=== PATIENT | male | born 1965 | race Caucasian/White ===

== ENCOUNTER → 2016-05-09 | Outpatient (CLI) | payer BC ==
[2016-05-09 09:12] LABS: Basophils # (A) 0.1 k/uL (0-0.2); Basophils % (A) 1 %; CHCM 33.4; Eosinophils # (A) 0.1 k/uL (0-0.7); Eosinophils % (A) 2 %; HCT 45.9 % (39.0-53.0); HDW 2.42; HGB 15.3 gm/dL (13.0-17.5); Luc # (Auto) 0.28; Luc % (Auto) 4; Lymphocytes # (A) 1.8 k/uL (1.0-4.8); Lymphocytes % (A) 26 %; MCH 30.2 pg (25.0-35.0); MCHC 33.4 g/dL (31.0-37.0); MCV 90.4 fL (80.0-100.0); Mean Platelet Volume 7.7; Monocytes # (A) 0.4 k/uL (0-1.0); Monocytes % (A) 6 %; Neutrophils # (A) 4.3 k/uL (1.3-7.7); Neutrophils % (A) 61 %; RBC 5.08 m/uL (4.30-5.90); RDW 14.6 % (11.5-15.5); WBC (Perox) 6.95
[2016-05-09 10:27] LABS: ALT 40 U/L (21-72); AST 29 U/L (17-59); Alkaline Phosphatase 69 U/L (38-126); Anion Gap 10 mmol/L; Blood Urea Nitrogen 18 mg/dL (9-20); Calcium 9.7 mg/dL (8.4-10.2); Carbon Dioxide 28 mmol/L (22-30); Chloride 105 mmol/L (98-107); Cholesterol 234 mg/dL (<200); Glucose 97 mg/dL (74-99); HDL Cholesterol 57 mg/dL (40-60); Non-African American GFR(MDRD) >60 (>60 ml/min/1.73 sqM); Potassium 4.8 mmol/L (3.5-5.1); Sodium 143 mmol/L (137-145); Total Bilirubin 0.7 mg/dL (0.2-1.3); Total Protein 7.8 g/dL (6.3-8.2); Triglycerides 158 mg/dL (<150)
[2016-05-09 10:52] LABS: Prostate Specific Antigen 0.66 ng/mL (0.00-4.00)
== END ==
LOC: LABWHC1 08:32
PROVIDERS: ATTEND Family Medicine
DX: E03.9 Hypothyroidism, unspecified (principal); E78.5 Hyperlipidemia, unspecified; Z12.5 Encounter for screening for malignant neoplasm of prostate
CPT/HCPCS: 36415; 80053; 80061; 84153; 84439; 84443; 84481; 85025

== ENCOUNTER 2016-07-14 07:22 | Day surgery (SDC) | payer BC ==
[2016-07-13 08:30] VITALS: BMI 34.4
[~2016-07-14 07:22] MED LIST: LACTATED RINGERS 1,000 ML IV SCH
[2016-07-14 07:35] VITALS: RESP 16; TEMP 97.3
[2016-07-14] MEDS ORDERED: LIDOCAINE 1% 20 ML VIAL (10MG/ML) FOR IV START SQ ONE (07:36)
[2016-07-14] MEDS ORDERED: PROPOFOL 10 MG/ML 20 ML VIAL IV ONE (08:08)
--- NOTE | 2016-07-14 08:32 | P.DS ---
Providers Attending physician: Christianne Scanlon Primary care physician: Stated None Plan - Discharge Summary Discharge Medication List Levothyroxine Sodium [Synthroid] 125 mcg PO DAILY 03/26/15 [History] Atorvastatin [Lipitor] 40 mg PO DAILY 07/14/16 [History] Activity/Diet/Wound Care/Special Instructions: Diverticular diet Discharge Disposition: HOME SELF-CARE
--- NOTE | 2016-07-14 08:32 | P.PCN ---
Date of Procedure: 07/14/16 Preoperative Diagnosis: Screening colonoscopy Postoperative Diagnosis: Diverticuli, internal hemorrhoids Procedure(s) Performed: Colonoscopy Implants: Anesthesia: MAC Surgeon: Christianne Scanlon Estimated Blood Loss (ml): 0 IV fluids (ml): 350 Pathology: none sent Condition: stable Disposition: PACU Indications for Procedure: Screening colonoscopy paternal grandparent with colon cancer Operative Findings: Diverticuli, internal hemorrhoids Description of Procedure: Patient was taken to the endoscopy suite and following sedation rectal exam was performed. Patient was noted to have sphincter tone no masses. Colonoscope was passed through the anus into the rectum. Was passed through the sigmoid colon splenic flexure transverse colon hepatic flexure right colon down to the area of the cecum. Circumferential observation mucosa did not reveal any lesions of concern in the cecum or right colon. No lesions of concern were identified in the transverse colon. Patient was noted to have scattered diverticuli in the sigmoid colon. Scope was brought down into the rectum where it was retroflexed and internal hemorrhoids were identified. Approximately 6 minutes were taken to withdraw the scope from the cecum to the rectum. Impression/plan: 1. Sigmoid diverticuli 2. Internal hemorrhoids Plan: 1. Conservative management 2. Repeat scope 7-10 years
[2016-07-14 08:35] VITALS: PULSE 62
[2016-07-14 08:48] VITALS: BP 102/56
== END 2016-07-14 11:34 | disposition home or self-care (01) ==
LOC: ORWHC2ENDO 07:22
PROVIDERS: ATTEND Surgery
DX: Z12.11 Encounter for screening for malignant neoplasm of colon (principal); K57.30 Diverticulosis of large intestine without perforation or abscess without bleeding; K64.8 Other hemorrhoids; I10 Essential (primary) hypertension; E78.5 Hyperlipidemia, unspecified; E07.9 Disorder of thyroid, unspecified; Z79.899 Other long term (current) drug therapy
CPT/HCPCS: J2704; G0121

== ENCOUNTER → 2017-12-18 | Outpatient (CLI) | payer BC ==
[2017-12-18 11:33] LABS: T4, Free (Free Thyroxine) 0.8 ng/dL (0.78-2.19)
== END | disposition home or self-care (01) ==
LOC: LABWHC1 09:49
PROVIDERS: ATTEND Physician Assistant
DX: E03.9 Hypothyroidism, unspecified (principal)
CPT/HCPCS: 36415; 84439; 84443

== ENCOUNTER 2018-04-16 14:07 | Inpatient (IN) | payer BC ==
[2018-04-16] MEDS ORDERED: ASPIRIN 81 MG PO STA (14:24)
--- NOTE | 2018-04-16 14:45 | ED ---
Chest Pain HPI - General Chief Complaint: Chest Pain Stated Complaint: Chest pain Time Seen by Provider: 04/16/18 14:24 Source: patient, RN notes reviewed Mode of arrival: wheelchair Limitations: no limitations - History of Present Illness Initial Comments: 53-year-old male presents emergency Department with chief complaint of chest pain. Patient states this pain started a few hours ago but has resolved. Patient states that he was just standing there at work when the pain started. Patient states it was left-sided substernal. Patient is nonradiating. Patient does have a history of hypertension and hyperlipidemia but states he stopped taking his medications. No history of diabetes no smoking history. Patient has no family history that he knows about but states that he cannot remember. Patient denies any nausea vomiting diarrhea constipation or shortness of breath. Patient states pain has resolved. He states it was not worse with movement. - Related Data Home Medications Medication Instructions Recorded Confirmed Levothyroxine Sodium [Synthroid] 125 mcg PO DAILY 03/26/15 07/14/16 Atorvastatin [Lipitor] 40 mg PO DAILY 07/14/16 07/14/16 Allergies Allergy/AdvReac Type Severity Reaction Status Date / Time No Known Allergies Allergy Verified 04/16/18 14:13 Review of Systems ROS Statement: Those systems with pertinent positive or pertinent negative responses have been documented in the HPI. ROS Other: All systems not noted in ROS Statement are negative. Past Medical History Past Medical History: Hyperlipidemia, Hypertension, Thyroid Disorder Additional Past Medical History / Comment(s): recently told elevated BP, but no medication yet History of Any Multi-Drug Resistant Organisms: None Reported Past Surgical History: No Surgical Hx Reported Additional Past Surgical History / Comment(s): colonoscopy, surgery when little to have something removed from neck Past Anesthesia/Blood Transfusion Reactions: No Reported Reaction Past Psychological History: No Psychological Hx Reported Smoking Status: Never smoker Past Alcohol Use History: None Reported Past Drug Use History: None Reported - Past Family History Mother Family Medical History: No Reported History General Exam Limitations: no limitations General appearance: alert, in no apparent distress Head exam: Present: atraumatic, normocephalic, normal inspection Neck exam: Present: normal inspection. Absent: tenderness, meningismus, lymphadenopathy Respiratory exam: Present: normal lung sounds bilaterally. Absent: respiratory distress, wheezes, rales, rhonchi, stridor, chest wall tenderness Cardiovascular Exam: Present: regular rate, normal rhythm, normal heart sounds. Absent: systolic murmur, diastolic murmur, rubs, gallop, clicks GI/Abdominal exam: Present: soft, normal bowel sounds. Absent: distended, tenderness, guarding, rebound, rigid Back exam: Absent: CVA tenderness (R), CVA tenderness (L) Skin exam: Present: warm, dry, intact, normal color. Absent: rash Course Vital Signs 04/16/18 14:09 Temperature 97.8 F Pulse Rate 75 Respiratory 18 Rate Blood Pressure 123/71 O2 Sat by Pulse 99 Oximetry Chest [facility] 53-year-[facility] male presented for chest pain. Patient lab work, EKG and chest x- ray. This is unremarkable at this time though he has multiple risk factors and concern for cardiac event. Patient will be admitted on heparin, repeat troponin and cardiology evaluation. Disposition Clinical Impression: Chest pain Disposition: ADMITTED IP TO THIS [facility] Condition: Stable Referrals: Vijay Hallman MD [Primary Care Provider] - 1-2 days
[2018-04-16 15:03] LABS: Basophils # (A) 0.1 k/uL (0-0.2); Basophils % (A) 1 %; Eosinophils # (A) 0.2 k/uL (0-0.7); Eosinophils % (A) 2 %; HCT 41.5 % (39.0-53.0); HGB 13.6 gm/dL (13.0-17.5); Lymphocytes % (A) 31 %; MCH 29.1 pg (25.0-35.0); MCHC 32.9 g/dL (31.0-37.0); MCV 88.6 fL (80.0-100.0); Mean Platelet Volume 6.7; Monocytes # (A) 0.3 k/uL (0-1.0); Monocytes % (A) 5 %; Neutrophils # (A) 3.9 k/uL (1.3-7.7); Neutrophils % (A) 59 %; Platelet Count 329 k/uL (150-450); RBC 4.68 m/uL (4.30-5.90); RDW 14.3 % (11.5-15.5); WBC 6.6 k/uL (3.8-10.6)
--- NOTE | 2018-04-16 15:08 | XR ---
EXAMINATION TYPE: XR chest 2V DATE OF EXAM: 04/16/2018 COMPARISON: NONE HISTORY: Chest pain TECHNIQUE: Frontal and lateral views of the chest are obtained. FINDINGS: Heart and mediastinum are normal. Lungs are clear. Diaphragm is normal. Bony thorax appear s normal. There are chest leads. IMPRESSION: Normal chest
[2018-04-16 15:12] LABS: ALT 32 U/L (21-72); AST 27 U/L (17-59); Albumin 4.3 g/dL (3.5-5.0); Alkaline Phosphatase 70 U/L (38-126); Anion Gap 9 mmol/L; Blood Urea Nitrogen 20 mg/dL (9-20); Calcium 9.4 mg/dL (8.4-10.2); Carbon Dioxide 23 mmol/L (22-30); Chloride 107 mmol/L (98-107); Glucose 110 mg/dL (74-99); Magnesium 1.9 mg/dL (1.6-2.3); Potassium 4.3 mmol/L (3.5-5.1); Sodium 139 mmol/L (137-145); Total Bilirubin 0.5 mg/dL (0.2-1.3); Total Protein 7.3 g/dL (6.3-8.2)
[2018-04-16 15:16] LABS: Creatine Kinase 420 U/L (55-170)
[2018-04-16 15:29] LABS: Creatine Kinase MB 2.8 ng/mL (0.0-2.4); Troponin I <0.012 ng/mL (0.000-0.034)
[2018-04-16 15:31] LABS: INR 0.9 (<1.2); Partial Thromboplastin Time 23.8 sec (22.0-30.0)
[2018-04-16] MEDS ORDERED: HEPARIN SODIUM,PORCINE 5,000 UNIT/ML 1 ML VIAL IV ONE (16:16)
[2018-04-16] MEDS ORDERED: NITROGLYCERIN SL TABS 0.4 MG TAB SUBLINGUAL PRN (16:16)
[2018-04-16] MEDS ORDERED: HEPARIN SOD,PORK IN 0.45% NACL 25,000 UNIT in 0.45% NACL 1 250ML.BAG IV SCH (16:30)
[2018-04-16] MEDS ORDERED: TEMAZEPAM 15 MG CAP PO PRN (18:13)
[2018-04-16] MEDS ORDERED: ACETAMINOPHEN TAB 500 MG TAB PO PRN (18:13)
[2018-04-16] MEDS ORDERED: ALPRAZolam 0.25 MG TAB PO PRN (18:13)
--- NOTE | 2018-04-16 22:34 | HP ---
HISTORY AND PHYSICAL DATE OF SERVICE: 04/16/2018 CHIEF COMPLAINT: Chest pain. HISTORY OF PRESENT ILLNESS: This 53-year-old gentleman with past medical history of hypertension, hyperlipidemia, hypothyroidism, being followed by Dr. Vijay Hallman in the outpatient setting was complaining of chest pain. The pain is mostly in the the center and left side of the chest. 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 Otherwise, there is no radiation. There is no history of symptoms of palpitation. The patient came to [facility] and was admitted for further evaluation and treatment. The troponins are negative. CK creatinine kinase was 420. The EKG on admission showed sinus rhythm and no acute changes. Patient admitted to the hospital for further evaluation and treatment. There is no history of fever, rigors or chills. No history of headache, loss of consciousness or seizures. PAST MEDICAL HISTORY: History of hypertension and history of hypothyroidism. MEDICATIONS: Prior to admission include home medications are: Levothyroxine 125 mcg p.o. daily. ALLERGIES: None. FAMILY HISTORY: No history of heart disease or strokes in the family. SOCIAL HISTORY: No history of smoking. No history of alcohol. REVIEW OF SYSTEMS: ENT: No diminished hearing or vision. CARDIOVASCULAR: As mentioned. RESPIRATORY: As mentioned earlier. GI no nausea. no dysuria. NERVOUS SYSTEM: No numbness, weakness. ALLERGY/IMMUNOLOGY: No asthma or hayfever. MUSCULOSKELETAL as mentioned earlier. HEMATOLOGY/ONCOLOGY: No history of anemia. ENDOCRINE: As mentioned earlier. CONSTITUTIONAL: As mentioned earlier. Dermatology: Negative. Rheumatology: Negative. Psychiatry: As mentioned earlier. PHYSICAL EXAMINATION: Alert and oriented times three. Pulse is 62. Blood pressure 146/90, respirations 16, temperature 98.4, pulse ox 98% on room air. HEENT: Conjunctivae normal. NECK: No jugular venous distention. Skin: RESPIRATORY: Breath sounds diminished in the bases. No rhonchi. No crackles. ABDOMEN: Soft, nontender. No mass palpable. Legs no edema. No swelling. CENTRAL NERVOUS SYSTEM: Higher functions as mentioned earlier. Moves all 4 limbs. No focal motor or sensory deficits. LYMPHATICS: No lymph nodes palpable in the neck, axillae or groin. SKIN: No ulcer, rash or bleeding. JOINTS: No active deforming arthropathy. Examination of the chest: Minimal tenderness in the left chest present. LABS: At this time show WBC with normal limits. CBC within normal limits. Sodium 130, potassium 4.2, glucose 110 and a creatine kinase 420. ASSESSMENT: 1. Chest pain possible unstable angina possibly musculoskeletal. 2. Increased creatinine kinase with normal Troponins. 3. History of hypertension. 4. Hyperlipidemia. 5. History of hypothyroidism. RECOMMENDATIONS AND DISCUSSION: In this 53-year-old gentleman who presented with multiple medical issues, at this time I recommend continue the current medications, management and symptomatic treatment. Unstable angina protocol. Cardiovascular consultation to rule out myocardial infarction. Otherwise, I would recommend resume the Levothyroxine. The patient would possibly benefit from a stress test, but however we will closely follow with Cardiology. Further recommendations to follow. BELLO / VINCEN: [id number] /
[2018-04-16 22:41] LABS: Creatine Kinase 353 U/L (55-170)
[2018-04-16 22:54] LABS: Creatine Kinase MB 2.4 ng/mL (0.0-2.4); Troponin I <0.012 ng/mL (0.000-0.034)
[2018-04-17 03:34] LABS: Basophils # (A) 0.1 k/uL (0-0.2); Basophils % (A) 1 %; Eosinophils # (A) 0.1 k/uL (0-0.7); Eosinophils % (A) 2 %; HCT 40.2 % (39.0-53.0); HGB 13.7 gm/dL (13.0-17.5); Lymphocytes # (A) 2.5 k/uL (1.0-4.8); Lymphocytes % (A) 38 %; MCH 30.1 pg (25.0-35.0); MCHC 34.1 g/dL (31.0-37.0); MCV 88.4 fL (80.0-100.0); Mean Platelet Volume 7.1; Monocytes # (A) 0.4 k/uL (0-1.0); Monocytes % (A) 5 %; Neutrophils # (A) 3.4 k/uL (1.3-7.7); Neutrophils % (A) 51 %; Platelet Count 316 k/uL (150-450); RBC 4.55 m/uL (4.30-5.90); RDW 14.3 % (11.5-15.5); WBC 6.6 k/uL (3.8-10.6)
[2018-04-17 03:43] LABS: Anion Gap 6 mmol/L; Blood Urea Nitrogen 19 mg/dL (9-20); Calcium 9.2 mg/dL (8.4-10.2); Carbon Dioxide 24 mmol/L (22-30); Chloride 107 mmol/L (98-107); Cholesterol 177 mg/dL (<200); Glucose 99 mg/dL (74-99); HDL Cholesterol 40 mg/dL (40-60); LDL Cholesterol,Calculated 88 mg/dL (0-99); Potassium 4.4 mmol/L (3.5-5.1); Sodium 137 mmol/L (137-145); Triglycerides 244 mg/dL (<150)
[2018-04-17 03:49] LABS: Creatine Kinase 334 U/L (55-170)
[2018-04-17 04:02] LABS: Creatine Kinase MB 2.2 ng/mL (0.0-2.4); Troponin I <0.012 ng/mL (0.000-0.034)
[2018-04-17] MEDS: LEVOTHYROXINE 125 MCG TAB PO SCH (06:34)
[2018-04-17] MEDS ORDERED: PANTOPRAZOLE 40 MG TABLET PO SCH (07:30)
[2018-04-17] MEDS ORDERED: ASPIRIN 325 MG TAB PO SCH (09:00)
--- NOTE | 2018-04-17 10:11 | CONS ---
CONSULTATION Mr. Reyes is a 53-year-old gentleman who is seen for evaluation of chest pain. Patient gives a history that he was lifting some bags and he started having a pain. The pain was in the left precordial areas. He felt like a soreness will come and go. It was not associated with any nausea vomiting or sweating. The pain did not radiate. Patient denies any past history of exertional chest discomfort. There is no history of hypertension, hyperlipidemia, or diabetes. Patient does not smoke. HOME MEDICATIONS: Includes Synthroid and Lipitor 40 mg daily. PAST MEDICAL HISTORY: Includes history of colonoscopy and surgery on his neck. SOCIAL HISTORY: Patient is never a smoker. PHYSICAL EXAMINATION: At present reveals a 53-year-old gentleman who does not appear to be in any acute distress. In the emergency room, patient's vital signs remain stable. Oxygen saturation was 99%. The patient's blood pressure is 130/84 mmHg, heart rate is 67 per minute, respirations are not labored. HEENT examination is negative. Neck is supple. There is no increase in jugular venous pressure. Both the carotid pulses are felt. There is no bruit. Chest is symmetrical. Heart the PMI is not felt. First and second heart sounds are heard. There is no evidence of any murmur. Lungs are clinically clear to auscultation and percussion. Abdomen is soft. Liver and spleen are not enlarged. Bowel sounds are heard. Extremities: Peripheral pulses are 2+. EKG shows normal sinus rhythm without any acute ischemic changes. Electrolytes are normal patient's 3 troponins are normal. FINAL IMPRESSION: This patient's chest pain is suggestive of atypical chest pain. EKGs and cardiac enzymes are normal. We will evaluate the patient with echocardiogram and stress echocardiographic study. MMODL / IJN: [id number] /
--- NOTE | 2018-04-17 16:29 | PN ---
PROGRESS NOTE DATE OF SERVICE: 04/17/2018 This 53-year-old gentleman who was admitted with chest pain, scheduled for stress test tomorrow by Cardiology. No chest pain. No palpitations. No fever at this time. EXAM: Alert and oriented x3. Pulse 69, pressure 119/82, respirations 16, temperature 98.4, pulse ox 94% on room air. HEENT: Conjunctivae normal. NECK: No jugular venous distention. CARDIOVASCULAR: S1, S2 muffled. Respirations: Breath sounds diminished in the bases. Scattered rhonchi. Abdomen is soft, nontender. Central nervous system: No focal deficits. LABS: CBC within normal limits. ASSESSMENT: 1. Chest pain possible unstable angina possibly musculoskeletal. 2. Increased creatinine with normal troponin. 3. History of hypertension. 4. History of hyperlipidemia. 5. History of hypothyroidism. RECOMMENDATIONS AND DISCUSSION: Recommend to continue current medications, management. Symptomatic treatment. Otherwise, at this time, I recommend a stress test per Cardiology. Further recommendations to follow. MMODL / IJN: [id number] /
[2018-04-18 06:36] LABS: Basophils # (A) 0.1 k/uL (0-0.2); Basophils % (A) 1 %; Eosinophils # (A) 0.1 k/uL (0-0.7); Eosinophils % (A) 2 %; HCT 44.7 % (39.0-53.0); HGB 14.6 gm/dL (13.0-17.5); Lymphocytes % (A) 29 %; MCH 29.3 pg (25.0-35.0); MCHC 32.7 g/dL (31.0-37.0); MCV 89.6 fL (80.0-100.0); Mean Platelet Volume 6.7; Monocytes # (A) 0.4 k/uL (0-1.0); Monocytes % (A) 5 %; Neutrophils # (A) 4.2 k/uL (1.3-7.7); Neutrophils % (A) 61 %; Platelet Count 356 k/uL (150-450); RBC 4.99 m/uL (4.30-5.90); RDW 14.4 % (11.5-15.5)
[2018-04-18 06:44] LABS: Calcium 9.3 mg/dL (8.4-10.2); Potassium 4.8 mmol/L (3.5-5.1)
[2018-04-18] MEDS: LEVOTHYROXINE 125 MCG TAB PO SCH (08:37)
[2018-04-18 08:39] VITALS: RESP 16; TEMP 98.6
--- NOTE | 2018-04-18 13:54 | ECHOF ---
Referral Reason:chest pain MEASUREMENTS -------- HEIGHT: 177.8 cm WEIGHT: 108.9 kg BP: 124/85 RVIDd: 3.5 cm (< 3.3) IVSd: 1.2 cm (0.6 - 1.1) LVIDd: 4.4 cm (3.9 - 5.3) LVPWd: 1.2 cm (0.6 - 1.1) IVSs: 1.6 cm LVIDs: 2.9 cm LVPWs: 1.6 cm LAESV Index (A-L): 21.07 ml/m Ao Diam: 3.1 cm (2.0 - 3.7) AV Cusp: 1.8 cm (1.5 - 2.6) LA Diam: 3.9 cm (2.7 - 3.8) EPSS: 0.7 cm MV E Gregory: 0.57 m/s MV DecT: 279 ms MV A Gregory: 0.48 m/s MV E/A Ratio: 1.17 RAP: 5.00 mmHg RVSP: 15.34 mmHg MV EF SLOPE: 117.99 mm/s (70 - 150) MV EXCURSION: 1.76 cm (> 18.000) FINDINGS -------- Sinus rhythm. This was a technically adequate study. The left ventricular size is normal. There is mild concentric left ventricular hypertrophy. Overa ll left ventricular systolic function is normal with, an EF between 55 - 60 %. The right ventricle is normal in size and function. Normal LA size by volume 22+/-6 ml/m2. The right atrium is normal in size. Aortic valve is trileaflet and is mildly thickened. There is no evidence of aortic regurgitation. There is no evidence of aortic stenosis. The mitral valve leaflets are mildly thickened. There is trace to mild mitral regurgitation. Trace tricuspid regurgitation present. Right ventricular systolic pressure is normal at < 35 mmHg. There is no evidence of pulmonary hypertension. The pulmonic valve was not well visualized. The aortic root size is normal. Normal inferior vena cava with normal inspiratory collapse consistent with estimated right atrial pre ssure of 5 mmHg. There is no pericardial effusion. CONCLUSIONS -------- 1. Sinus rhythm. 2. This was a technically adequate study. 3. The left ventricular size is normal. 4. There is mild concentric left ventricular hypertrophy. 5. Overall left ventricular systolic function is normal with, an EF between 55 - 60 %. 6. Normal LA size by volume 22+/-6 ml/m2. 7. Aortic valve is trileaflet and is mildly thickened. 8. The mitral valve leaflets are mildly thickened. 9. There is trace to mild mitral regurgitation. 10. Trace tricuspid regurgitation present. 11. Right ventricular systolic pressure is normal at < 35 mmHg. 12. There is no evidence of pulmonary hypertension. 13. The pulmonic valve was not well visualized. 14. The aortic root size is normal. 15. There is no pericardial effusion. MEAL GRINDER TENDER: Yeison Calix RDCS
[2018-04-18 16:11] VITALS: BP 122/81; PULSE 80
--- NOTE | 2018-04-18 16:11 | P.PN ---
Subjective Progress Note Date: 04/18/18 This is a 53-year-old gentleman who presented to the hospital with atypical chest discomfort. He underwent a stress echocardiographic study today that was negative for any reversible ischemia. Echocardiogram with Doppler study was performed which revealed a normal left ventricular systolic function. Hemodynamically he is stable. From our perspective he may be able to be discharged home today Objective - Vital Signs Vital signs: Vital Signs Temp 98.6 F 04/18/18 08:00 Pulse 77 04/18/18 08:00 Resp 16 04/18/18 12:00 BP 115/82 04/18/18 08:00 Pulse Ox 94 L 04/18/18 04:00 Intake & Output 04/17/18 04/18/18 04/18/18 18:59 06:59 18:59 Intake Total 240 240 Balance 240 240 Weight 99.3 kg 108.862 kg Intake: Oral 240 240 Other: Voiding Method Toilet Toilet Toilet # Voids 1 1 - Exam PHYSICAL EXAMINATION: GENERAL: 53-year-old gentleman in no acute distress at the time of my examination HEENT: Head is atraumatic, normocephalic. Pupils equal, round. Sclera anicteric. Conjunctiva are clear. Mucous membranes of the mouth are moist. Neck is supple. There is no elevated jugular venous pressure. No carotid bruit is heard. HEART EXAMINATION: Heart S1, S2 normal. No murmur or gallop heard. CHEST EXAMINATION: Lungs are clear to auscultation and precussion. No chest wall tenderness is noted on palpation or with deep breathing. ABDOMEN: Soft, nontender. Bowel sounds are heard. No organomegaly noted. EXTREMITIES: 2+ peripheral pulses with no evidence of peripheral edema and no calf tenderness noted. NEUROLOGIC patient is awake, alert and oriented 3. . - Labs CBC & Chem 7: 04/18/18 05:40 04/18/18 05:40 Assessment and Plan Plan: Assessment and plan #1 atypical chest discomfort Plan Stress echocardiographic study performed today was negative for any reversible ischemia. Echocardiogram with Doppler study revealed a normal left ventricular systolic function. From cardiology's perspective, patient may be able to be discharged home today. DNP note has been reviewed, I agree with a documented findings and plan of care. Patient was seen and examined.
--- NOTE | 2018-04-19 06:40 | DS ---
DISCHARGE SUMMARY DATE OF SERVICE: 04/18/2018 FINAL DIAGNOSES: 1. Chest pain, myocardial infarction ruled out. Negative stress test. 2. Increased creatine kinase with normal troponins. 3. History of hypertension. 4. History of hyperlipidemia. 5. Hypothyroidism. DISCHARGE DISPOSITION: The patient will be discharged in stable condition with guarded prognosis. HISTORY OF PRESENT ILLNESS: This 53-year-old gentleman with the past medical history of multiple medical problems admitted with chest pain, had elevated creatine kinase with normal troponins. The patient had some pain in the left side of the chest with some local tenderness. Patient underwent a stress test per Cardiology and per Cardiology reported as normal and the patient will be discharged in stable condition with guarded prognosis. On exam, vitals are stable. CARDIOVASCULAR: S1, S2, muffled. ABDOMEN: Soft. NERVOUS SYSTEM: No focal deficits. DISCHARGE ADVICE: 1. Diet is cardiac diet. 2. Activity limited until followup. 3. Follow up with Dr. Vijay Hallman in 2-3 days. 4. Follow up with Dr. Phil Lynch as recommended. MEDICATIONS: 1. Levothyroxine 125 mcg p.o. daily. 2. Tylenol p.r.n. MMODL / IJN: [id number] /
--- NOTE | 2018-04-19 12:45 | ECHOS ---
STRESS ECHOCARDIOGRAM DATE OF SERVICE: 04/16/2018 INDICATIONS: Chest pain. MEDICATIONS: BASELINE HEART RATE: 66 BASELINE BLOOD PRESSURE: 129/73 mmHg. MAXIMUM HEART RATE: 143 MAXIMUM BLOOD PRESSURE: 175/75 mmHg 85% MPHR: 143 100% MPHR: 168 METS: 10.3 MAXIMUM STAGE REACHED: 3 TOTAL EXERCISE TIME: 8:45 CLINICAL INFORMATION: Pre-testing physical examination showed a heart rate of 66, pressure 129/73 mmHg. Baseline EKG showed sinus mechanism. The patient exercised on the treadmill according to Joshua protocol for a total of 8 minutes and achieved 10.3 METS. Max heart rate was 143, which is about 85% of maximum predicted heart rate. Maximum blood pressure was 175/75 mmHg. Clinically the patient did not have any symptoms of chest pain or discomfort and the EKG did not show any significant ST or T-wave abnormalities concerning for ischemia. ECHOCARDIOGRAM IMAGES: Echocardiogram images from parasternal long axis view, parasternal short axis view, apical 4-chamber and apical 2-chamber views were obtained as the baseline images, at peak heart rate as well as on recovery. The echocardiogram images showed good augmentation in the left ventricular systolic function without any evidence of wall motion abnormalities concerning for ischemia. CONCLUSION: 1. Excellent exercise tolerance. 2. Normal EKG in response to exercise. 3. Normal echocardiogram in response to exercise. MMODL / IJN: [id number] /
== END 2018-04-18 16:28 | disposition home or self-care (01) | DRG 313 ==
LOC: EC 14:07 → OBSVTOIN 16:38 → 1SOBS 16:38 → 3SCARD 04-17 16:57
PROVIDERS: ADMIT Hospitalist; ATTEND Hospitalist
DX: R07.89 Other chest pain (principal); E03.9 Hypothyroidism, unspecified; E78.5 Hyperlipidemia, unspecified; I10 Essential (primary) hypertension; Z79.890 Hormone replacement therapy; Z79.899 Other long term (current) drug therapy; Z91.14 Patient's other noncompliance with medication regimen
CPT/HCPCS: 36415; 71046; 80048; 80053; 80061; 82550; 82553; 83735; 84484; 85025; 85610; 85730; 93005; 93306; 93351; 96365; 96376; 99285

== ENCOUNTER → 2021-09-13 | Outpatient (CLI) | payer BC ==
--- NOTE | 2021-09-13 12:29 | MR ---
EXAMINATION TYPE: MR brain wo/w con DATE OF EXAM: 09/13/2021 12:23 PM COMPARISON: NONE HISTORY: Excessive tiredness, facial numbness, dysarthria and anarthria. History of back of head/neck injury. CONTRAST: Patient received 10 mL intravenous Gadavist gadolinium contrast. Multiplanar and multispin-echo imaging of the brain was performed . Pre and post contrast enhanced i mages are obtained. The ventricles, basal cisterns and sulci overlying the cerebral convexities are mildly enlarged. There is evidence of mild periventricular white matter ischemic demyelination. Remote deep white matter insults are also noted. No acute edema is seen on diffusion weighted imaging. There is no evidence for midline shift or mass effect. Acute intracranial hemorrhage or extra-axial collection is not evident. No enhancing lesions are seen. The paranasal sinuses and mastoid air cells are well-aerated. IMPRESSION: Age-related atrophic and chronic small vessel ischemic change. No acute intracranial process at this time. No enhancing lesions are seen.
== END | disposition home or self-care (01) ==
LOC: RADMRIMAIN 11:32
PROVIDERS: ATTEND Family Medicine
DX: R47.1 Dysarthria and anarthria (principal); G31.9 Degenerative disease of nervous system, unspecified; I67.82 Cerebral ischemia
CPT/HCPCS: 70553; A9585

== ENCOUNTER → 2021-10-03 | Outpatient (CLI) | payer BC ==
--- NOTE | 2021-10-03 11:34 | US ---
EXAMINATION TYPE: US carotid duplex BILAT DATE OF EXAM: 10/03/2021 COMPARISON: NONE CLINICAL HISTORY: R47.1 DYSARTHRIA AND ANARTHRIA. TECHNIQUE: Carotid duplex ultrasound examination. Indirect Doppler criteria was utilized. FINDINGS: EXAM MEASUREMENTS: RIGHT: Peak Systolic Velocity (PSV) cm/sec ----- Right CCA: 74.6 ----- Right ICA: 79.1 ----- Right ECA: 105.8 ICA/CCA ratio: 1.1 RIGHT: End Diastole cm/sec ----- Right CCA: 16.4 ----- Right ICA: 13.1 ----- Right ECA: 12.4 LEFT: Peak Systolic Velocity (PSV) cm/sec ----- Left CCA: 63.9 ----- Left ICA: 94.1 ----- Left ECA: 87.5 ICA/CCA ratio: 1.5 LEFT: End Diastole cm/sec ----- Left CCA: 16.0 ----- Left ICA: 21.5 ----- Left ECA: VERTEBRALS (direction of flow): Right Vertebral: Antegrade Left Vertebral: Antegrade Rhythm: Normal PROFESSIONAL SHOPPER NOTES: Minimal atherosclerotic changes with no significant velocity increases. IMPRESSION: No hemodynamically significant stenosis in either internal carotid artery. Criteria for Assigning % of Stenosis / Diameter reduction (Estimation based on the indirect measurements of the internal carotid artery velocities (ICA PSV). 1. Normal (no stenosis)=ICA PSV < 125 cm/s: ratio < 2.0: ICA EDV<40 cm/s. 2. Less than 50% stenosis=ICA PSV < 125 cm/s: ratio < 2.0: ICA EDV<40 cm/s. 3. 50 to 69% stenosis=ICA PSV of 125 to 230 cm/s: ration 2.0 ? 4.0: ICA EDV 40-100 cm/s. 4. Greater than 70% stenosis to near occlusion= ICA PSV > 230 cm/s: ratio > 4.0: ICA EDV > 100 cm/s. 5. Near occlusion= ICA PSV velocities may be low or undetectable: variable ratio and ICA EDV. 6. Total occlusion=unable to detect flow.
== END | disposition home or self-care (01) ==
LOC: RADUSWWP 10:53
PROVIDERS: ATTEND Family Medicine
DX: I65.23 Occlusion and stenosis of bilateral carotid arteries (principal); R47.1 Dysarthria and anarthria
CPT/HCPCS: 93880

== ENCOUNTER → 2022-02-11 | Outpatient (CLI) | payer BC ==
--- NOTE | 2022-02-11 17:47 | XR ---
EXAMINATION TYPE: XR knee 4V RT DATE OF EXAM: 02/11/2022 COMPARISON: None HISTORY: Injury, pain TECHNIQUE: 4 view right knee FINDINGS: Joint spaces are preserved. No acute fracture or dislocation is evident. No joint effusion is evident. Follow up exams can be performed 7-10 days from acute trauma for continued pain. IMPRESSION: 1. No acute osseous abnormality right knee
== END | disposition home or self-care (01) ==
LOC: RADXRMAIN 09:15
PROVIDERS: ATTEND Family Medicine
DX: M23.91 Unspecified internal derangement of right knee (principal)